=== PATIENT | female | born 1990 | race Caucasian/White ===

== ENCOUNTER 2023-06-21 07:13 | Emergency (ER) | payer BC ==
[~2023-06-21] VITALS: Ht 162.6 cm; Wt 65.9 kg
[~2023-06-21 07:13] MED LIST: IBUP-1985 PO
[2023-06-21 07:22] VITALS: BP 125/42; PULSE 62; RESP 18; TEMP 98; O2SAT 99
== END 2023-06-21 09:15 | disposition home or self-care (01) ==
LOC: ER 07:13
DX: J01.90 Acute sinusitis, unspecified (principal); R05.9 Cough, unspecified; R50.9 Fever, unspecified; Z79.1 Long term (current) use of non-steroidal anti-inflammatories (NSAID)
CPT/HCPCS: 99282

== ENCOUNTER 2024-02-25 10:49 | Emergency (ER) | payer BC ==
[~2024-02-25] VITALS: Ht 162.6 cm; Wt 65.5 kg
[2024-02-25 10:56] VITALS: BP 113/69; PULSE 54; TEMP 98.9; O2SAT 96
[2024-02-25] MEDS: LIDOcaine 1% W/epiNEPHrine 1:100,000 20ml vial IJ ONE (11:21)
[2024-02-25] MEDS ORDERED: CEPH-585 PO (11:46)
[2024-02-25 11:53] VITALS: RESP 16
== END 2024-02-25 11:59 | disposition home or self-care (01) ==
LOC: ER 10:49
DX: L02.213 Cutaneous abscess of chest wall (principal); Z79.2 Long term (current) use of antibiotics; Z79.1 Long term (current) use of non-steroidal anti-inflammatories (NSAID)
CPT/HCPCS: 10060; 87070; 99283

== ENCOUNTER 2024-03-05 16:33 | Outpatient (CLI) | payer BC | END 2024-03-05 23:59 | disposition home or self-care (01) | LOC: RAD 16:33 | PROVIDERS: ATTEND Nurse Practitioner Family | DX: J34.89 Other specified disorders of nose and nasal sinuses (principal); J32.9 Chronic sinusitis, unspecified | CPT/HCPCS: 70486 ==

== ENCOUNTER 2024-08-12 09:18 | Emergency (ER) | payer BC ==
[~2024-08-12] VITALS: Ht 162.6 cm; Wt 63.4 kg
[2024-08-12 09:44] VITALS: BP 107/63; PULSE 68; RESP 16; O2SAT 98
[2024-08-12] MEDS ORDERED: FLUT16SP2 BOTHNARES (10:16)
[2024-08-12] MEDS ORDERED: CEFD300C3 PO (10:16)
[2024-08-12 10:23] VITALS: TEMP 98.6
== END 2024-08-12 10:24 | disposition home or self-care (01) ==
LOC: ER 09:18
DX: H72.91 Unspecified perforation of tympanic membrane, right ear (principal); H66.91 Otitis media, unspecified, right ear; Z79.52 Long term (current) use of systemic steroids; Z79.1 Long term (current) use of non-steroidal anti-inflammatories (NSAID)
CPT/HCPCS: 99283